=== PATIENT | female | born 1945 | race Asian ===

== ENCOUNTER 2021-08-05 10:29 | Outpatient (CLI) | payer MEDICARE, SELFPAY ==
[2021-08-05 11:19] LABS: Add Urine Microscopic? YES; Appearance Urine Clear (Clear); Bilirubin Urine Negative (Negative); Blood Urine Negative (Negative); Color Urine Straw (Yellow); Glucose Urine UA Negative (Negative); Ketones Urine Negative (Negative); Leukocyte Esterase Ur 2+ LEU/UL (Negative); Mucus Urine Rare /lpf; Nitrate Urine Negative (Negative); Protein Urine Negative (Negative); RBC Urine 0-2 /hpf (0-2); Specific Grav Ur 1.009 (1.001-1.035); Urobilinogen Urine Negative mg/dL (<2.0); WBC Urine >75 /hpf
== END 2021-08-05 10:30 | disposition home or self-care (01) ==
LOC: ANHLAB 10:36
PROVIDERS: PCP Internal Medicine; Visit Provider Internal Medicine
DX: R30.0 Dysuria (principal)
CPT/HCPCS: 81001; 87086; 87147; 87181; 87186

== ENCOUNTER 2021-08-13 14:21 | Outpatient (CLI) | payer MEDICARE, SELFPAY ==
--- NOTE | ~2021-08-13 | MM_ITS ---
EXAMINATION: MM screening hunter BI w tiffany HISTORY: Screening mammogram TECHNIQUE: Craniocaudal and mediolateral oblique 3-D tomosynthesis images were obtained and synthetic 2-D images were generated. CAD analysis was submitted and interpreted. COMPARISON: No prior mammogram is available for comparison at this institution. BREAST PARENCHYMAL COMPOSITION: The breasts are heterogeneously dense, which may obscure small masses . FINDINGS: There is no evidence of suspicious mass, calcification, or architectural distortion to sugg est malignancy in either breast. There has been no suspicious interval change. IMPRESSION: 1. No mammographic evidence of malignancy. 2. Recommend routine screening mammography in one year. BI-RADS Category 1: Negative Reviewed, dictated and finalized at location B. [employer] CONTROL ENGINEER
== END 2021-08-13 14:22 | disposition home or self-care (01) ==
LOC: ANHIMG 14:23
PROVIDERS: PCP Internal Medicine; Visit Provider Internal Medicine
DX: Z12.31 Encounter for screening mammogram for malignant neoplasm of breast (principal)
CPT/HCPCS: 77063; 77067

== ENCOUNTER 2021-12-23 15:35 | Outpatient (CLI) | payer MEDICARE, SELFPAY ==
[2021-12-23 15:54] LABS: Appearance Urine Clear (Clear); Bilirubin Urine Negative (Negative); Blood Urine Trace-lysed (Negative); Color Urine Yellow (Yellow); Glucose Urine UA Negative (Negative); Ketones Urine Negative (Negative); Leukocyte Esterase Ur 3+ LEU/UL (Negative); Nitrate Urine Negative (Negative); Protein Urine Negative (Negative); Specific Grav Ur 1.015 (1.001-1.035); Urobilinogen Urine 0.2 mg/dL (<2.0)
[2021-12-23 15:57] LABS: Bacteria Urine Trace /hpf; WBC Urine >75 /hpf
[2021-12-23 16:14] LABS: Add Urine Microscopic? YES
== END 2021-12-23 15:36 | disposition home or self-care (01) ==
LOC: ANHLAB 15:37
PROVIDERS: PCP Internal Medicine; Visit Provider Internal Medicine
DX: R30.0 Dysuria (principal)
CPT/HCPCS: 81001; 87077; 87086; 87186

== ENCOUNTER 2021-12-30 15:15 | Outpatient (RCR) | payer MEDICARE, SELFPAY ==
--- NOTE | 2021-11-12 11:32 | PTOPEVAL ---
PHYSICAL THERAPY INITIAL EVALUATION. Thank you for referring Janet Gould to [facility].? The patient is scheduled to be seen for therapy? 2x/week for 3 weeks. Please review, sign, date and return this plan of care JEFFREY. I agree with and certify that the following plan of care is medically necessary. Referring Physician Date Attending Provider: Nico Lyons DO *PT Outpatient Evaluation Start: 11/12/21 Evaluation Information Diagnosis R knee pain Onset 3 weeks ago Subjective Information Pt states 3 weeks ago she Query Text:As Reported By Patient/ tripped going down the stairs Family and fell doing down the last step. She states she fell and hit her knee on the concrete. Since then it has been very difficult to walk. When wearing a compression sock she can walk almost normally. Pt reports no pain at rest, only with activity. She completes 1 -2 hours of exercise 4 day per week. Pain Assessment Right Knee(s) Reported Pain Level 0 Pain Description Dull Pain Frequency Acute,Intermittent Other Pain Description 0 at rest Greatest Pain Intensity 8 Pain Aggravating Factors Walking,Weight Bearing/ Standing Lower Extremity Range of Motion General Lower Extremity Range of Motion WFL/Left,WFL/Right Gross Lower Extremity Range of Motion L knee active ROM 0-140 Comments R knee active ROM 0-2-125 Lower Extremity Muscle Strength Testing General Lower Extremity Strength WFL/Left,WFL/Right Gross Lower Extremity Strength B LE grossly 4+/5 R knee flexion 3+/5 R knee extension 4-/5 Muscle Length Testing Left Hamstring Length -10 Right Hamstring Length -35 Posture Thoracic Spine Posture Neutral Thorax Posture Neutral Weight Distribution Decreased Wt.Bear on (R) Palpation Assessment Palpation none Knee Special Tests Anterior Drawer Negative Right Posterior Drawer Negative Right Valgus Stress Test Knee at 0 Degrees Negative Right Varus Stress Test Knee at 0 Degrees Negative Right Patellofemoral Compression/Grind Test Negative Right Balance Assessment Time Up Go (TUG) Timed Up and Go Test (TUG) (Seconds) 19 Comments slow gait speed, increased time to complete turn 5 Time Sit to Stand Time in Seconds 20 5 Time Sit to Stand Comments without the use of UEs G
--- NOTE | 2021-12-04 13:51 | PCPTNOTE ---
Patient did not show up for scheduled appointment this date, she thought she had a different appointment time. She is rescheduled.
--- NOTE | 2021-12-05 16:21 | PTOPEVAL ---
PHYSICAL THERAPY PROGRESS REPORT. Thank you for referring Janet Gould to [facility].? The patient is scheduled to be seen for therapy?2x/week for 4 weeks. Please review, sign, date and return this plan of care JEFFREY. I agree with and certify that the following plan of care is medically necessary. Referring Physician Date Attending Provider: Nico Lyons, *PT Outpatient Evaluation Start: 11/12/21 Evaluation Information Diagnosis R knee pain Onset 3 weeks ago Subjective Information Pt states her knee was getting Query Text:As Reported By Patient/ better for a while but states Family now it feels like it is weak again, but not as bad as before. She has no pain at rest, just with movement. Pt states some days are perfectly normal and other days her knees just does not seem to hold her up. Pain Assessment Self Report Pain Assessment Right Knee(s) Reported Pain Level 0 Greatest Pain Intensity 6 Lower Extremity Range of Motion General Lower Extremity Range of Motion WFL/Left,WFL/Right Gross Lower Extremity Range of Motion L knee active ROM 0-140 Comments R knee active ROM 0-2-132 Lower Extremity Muscle Strength Testing General Lower Extremity Strength WFL/Left,WFL/Right Gross Lower Extremity Strength B LE grossly 4+/5 R knee flexion 3+/5 R knee extension 3+/5 R hip abduction 3+/5 L hip abduction 3/5 B hip extension 2+/3 Balance Assessment Timed Up and Go Test (TUG) (Seconds) 14 Comments Initially: 19s, slow gait speed, increased time to complete turn 12/05/21: 14s, decreased gait speed, no terminal knee extension 5 Time Sit to Stand Time in Seconds 18 5 Time Sit to Stand Comments Initially: 20s without the use Query Text:Normative Data: If Greater of UEs Than 15 Seconds, 74% Increase Risk for 12/05/21: 18s without the use Recurrent Falls of UEs Gait Assessment Gait Pattern Antalgic Gait Gait Pattern Observed Decreased Stride Length - Left ,Decreased Weight Shift - Right,Trunk Lateral Lean - Right Other Gait Observations decreased stride length, lack of terminal knee extension reba 2 Minute Walk Total Distance Walked (feet) 405 2 Minute Walk Test
--- NOTE | 2022-01-01 15:50 | PCPTNOTE ---
Patient did not show up for scheduled appointment this date.
--- NOTE | 2022-02-05 10:50 | PCPTNOTE ---
Attending Provider: Nico Lyons DO Patient:Janet Gould Date of :1945 PHYSICAL THERAPY DISCHARGE SUMMARY. Pt was hospitalized 12/31/21, she was told she needed clearance from her doctor prior to returning to therapy. Have called patient twice and she has not reached out to the office yet. Called again and patient did not answer, left voicemail explaining she will be discharged d/t length of time since she has been to therapy. She will need a new order if she wishes to begin therapy again. Patient has not returned for any further treatments since 12/30/2021. Patient?s initial visit was on 11/12/2021 10:00 and she had a total of 14 visits. The goals have been partially met. Thank you for referring this patient to [facility]. Please review, sign, date and return this discharge summary JEFFREY. I have been updated about the patient's current status and I agree with discharge from the above service at this time. Referring Physician Date
== END 2022-02-05 12:50 | disposition home or self-care (01) ==
LOC: ANHPT 15:15
PROVIDERS: PCP Internal Medicine; Visit Provider Internal Medicine
DX: M25.561 Pain in right knee (principal)
CPT/HCPCS: 97110; 97112; 97116; 97140; 97161; 97530

== ENCOUNTER 2021-12-31 21:29 | Emergency (ER) | payer MEDICARE, SELFPAY ==
--- NOTE | ~2021-12-31 | CT_ITS ---
EXAMINATION: CT abdomen pelvis wo con DATE: 12/31/2021 23:33 INDICATION: Right lower quadrant abdominal pain. TECHNIQUE: Computed tomography (CT) of the abdomen and pelvis was performed without intravenous contr ast. Automated exposure control and iterative reconstruction technique were employed. The dose-length product was 178.63 mGy-cm. COMPARISON: None. FINDINGS: The visualized portions of the lung bases demonstrate mild atelectasis. No pleural effusion . The heart size is normal. No pericardial effusion. The liver, gallbladder, spleen, pancreas, adrena l glands, and left kidney are normal. Right kidney is absent. There is diverticulosis of the colon wi thout evidence of diverticulitis. There are no dilated loops of bowel. The appendix is not visualized . There are no pathologically enlarged lymph nodes. There is no free intraperitoneal fluid. There is thoracolumbar levoscoliosis. There is severe lumbar spondylosis. IMPRESSION: 1. No etiology for the patient's symptoms. Reviewed, dictated and finalized at location A.
[2021-12-31 21:41] VITALS: BP 152/102; PULSE 67; RESP 18; TEMP 36.7; O2SAT 94
[2021-12-31 22:28] VITALS: PULSE 65
--- NOTE | 2021-12-31 23:34 | ED.GENADULT ---
HPI - General Adult General Chief complaint: Weakness Stated complaint: body aches Time Seen by Provider: 12/31/21 23:05 History of Present Illness HPI narrative: 76-year-old female presented to the emergency department for evaluation of 3 days of generalized fatigue and generalized weakness. Patient does describe having chills and fever overnight. Patient denies any chest pain or shortness of breath. Patient states she did have some tingling in her hands but denies any other significant plaints. Related Data Allergies Allergy/AdvReac Type Severity Reaction Status Date / Time No Known Allergies Allergy Verified 12/04/21 13:56 Review of Systems Review of Systems: CONSTITUTIONAL: See HPI EYES: Denies visual changes, redness, or discharge. ENT: Denies rhinorrhea, congestion, sore throat, or otalgia. CARDIOVASCULAR: Denies chest pain, palpitations, or edema. RESPIRATORY: Denies cough or dyspnea. GASTROINTESTINAL: Denies abdominal pain, nausea, vomiting, or diarrhea. GENITOURINARY: Denies dysuria or hematuria. SKIN: Denies rash or itching. MUSCULOSKELETAL: Denies back pain, joint pain, or myalgia. NEUROLOGIC: Denies headache, numbness, or weakness. [facility] Family History Family History Mother Cerebrovascular accident Social History Social History Smoking status: Never smoker Second hand tobacco smoke exposure: No Alcohol intake: never Substance use: unknown Substance use type: does not use Spiritual care concerns: No Exam Narrative: APPEARANCE: Well appearing, no pain, no distress, well-nourished. HEAD: normocephalic, atraumatic. EYES: PERRLA/EOMI, conjunctivae clear. NOSE: Normal no drainage THROAT: Pharynx clear, no exudate. NECK: Supple. No adenopathy, no masses. RESPIRATORY: Airway patent, respirations nonlabored. Clear to auscultation bilaterally, no rales, rhonchi, wheezing. CARDIOVASCULAR: Regular rate and rhythm without murmurs rubs or gallops. ABDOMINAL: Soft, nontender, nondistended, normal bowel sounds MUSCULOSKELETAL: Moves all extremities. Strength/ROM intact, No edema, No calf tenderness. NEURO: Alert. Cranial nerves II through XII intact. Good gait. Good coordination SKIN: Warm, dry. Normal Color Course Course Emergency Course: Patient did feel improved with treatment. Patient is afebrile with no leukocytosis. Patient's CMP was also normal limits. UA was negative for urinary tract infection. COVID test was negative. Patient's CT scan showed moderate amount of stool but no explanation for the patient's symptoms. Patient was updated on the results of her work-up and recommended have close follow-up with her primary care physician. Patient states she did feel improved and was comfortable with the plan for discharge to home and close follow-up. Patient was also educated reasons to return to the emergency department. Vital Signs Vital signs: Vital Signs Temperature 98.1 F 12/31/21 21:41 Pulse Rate 67 12/31/21 21:41 Respiratory Rate 18 12/31/21 21:41 Blood Pressure 152/102 H 12/31/21 21:41 Pulse Oximetry 94 12/31/21 21:41 Oxygen Delivery Room Air 12/31/21 21:41 Temperature 98.1 F 12/31/21 21:41 Pulse Rate 76 01/01/22 03:18 Respiratory Rate 18 01/01/22 03:18 Blood Pressure 153/103 H 01/01/22 03:18 Pulse Oximetry 99 01/01/22 03:18 Oxygen Delivery Room Air 12/31/21 21:41 Medical Decision Making Vital Signs Vital Signs: Vital Signs Temperature 98.1 F 12/31/21 21:41 Pulse Rate 67 12/31/21 21:41 Respiratory Rate 18 12/31/21 21:41 Blood Pressure 152/102 H 12/31/21 21:41 Pulse Oximetry 94 12/31/21 21:41 Oxygen Delivery Room Air 12/31/21 21:41 Temperature 98.1 F 12/31/21 21:41 Pulse Rate 76 01/01/22 03:18 Respiratory Rate 18 01/01/22 03:18 Blood Pressure 153/103 H 01/01/22 03:18 Pulse Oximetry 9
[2022-01-01] MEDS: SODIUM CHLORIDE 0.9% IV 1,000 ML 999 ML IV CONT (00:16)
[2022-01-01 00:25] LABS: Basophils Percent Auto 0.7 % (0.2-1.2); Hematocrit 43.1 % (37.0-47.0); Hemoglobin 14.1 g/dL (12.0-15.0); Immature Granulocyte Absolute 0.01 K/mm3 (0.00-0.031); Immature Granulocyte Percent A 0.4 % (0-0.5); Lymphocytes Absolute Auto 0.46 K/mm3 (0.9-3.2); Lymphocytes Percent Auto 16.3 % (18.3-44.2); Mean Corpuscular HGB Conc 32.7 g/dl (32-36); Mean Corpuscular Hemoglobin 29.4 pg (26-34); Mean Corpuscular Volume 89.8 fl (80-100); Mean Platelet Volume 9.4 fl (7.4-10.4); Monocytes Absolute Auto 0.2 K/mm3 (0.1-0.6); Monocytes Percent Auto 7.4 % (2.6-8.5); Neutrophils Absolute Auto 2.1 K/mm3 (1.3-6.7); Neutrophils Percent Auto 75.2 % (45.5-73.1); Platelet Count Result 202 k/mm3 (150-375); Red Cell Distribution Width 13.3 % (11.5-14.5); White Blood Count 2.8 K/mm3 (4.5-10.0)
[2022-01-01 00:37] LABS: SARS-CoV-2 RNA PCR Negative
[2022-01-01 00:42] LABS: Alanine Aminotransferase 13 U/L (6-35); Albumin Level 4.7 g/dL (3.5-5.1); Alkaline Phosphatase 70 U/L (38-126); Anion Gap 11 mmol/L (8-16); Aspartate Amino Transferase 25 U/L (14-36); Bilirubin,Total 0.6 mg/dL (0.2-1.3); Blood Urea Nitrogen 20 mg/dL (7-17); Calcium 9.2 mg/dL (8.4-10.2); Carbon Dioxide 22 mmol/L (22-30); Chloride 100 mmol/L (98-107); Estimated CRCL calculation 39 ml/min; Estimated Glomerular Filt Rate > 60; Glucose 144 mg/dL (65-110); Lipase 61 U/L (23-300); Potassium 4.9 mmol/L (3.4-5.0); Sodium 133 mmol/L (137-145)
[2022-01-01 00:55] LABS: Lactic Acid Reflex 1.4 mmol/L (0.7-2.0)
[2022-01-01 01:39] LABS: Appearance Urine Clear (Clear); Bilirubin Urine Negative (Negative); Color Urine Yellow (Yellow); Glucose Urine UA Negative (Negative); Ketones Urine 2+ mg/dL (Negative); Leukocyte Esterase Ur Negative LEU/UL (Negative); Nitrate Urine Negative (Negative); Protein Urine Trace mg/dL (Negative); Urobilinogen Urine 0.2 mg/dL (<2.0); pH Urine 6.5 (5.0-9.0)
[2022-01-01 01:40] LABS: Mucus Urine Rare /lpf; RBC Urine 0-2 /hpf (0-2); Squamous Epithelial Cell Urine Rare /hpf (Few); WBC Urine 0-3 /hpf
[2022-01-01 01:55] LABS: Add Urine Microscopic? YES; Blood Urine Trace (Negative)
[2022-01-01 03:18] VITALS: BP 153/103; PULSE 76; RESP 18; O2SAT 99
== END 2022-01-01 03:20 | disposition home or self-care (01) ==
PROVIDERS: Emergency Provider Emergency Medicine; PCP Internal Medicine
DX: R53.1 Weakness (principal); Z20.822 Contact with and (suspected) exposure to COVID-19
CPT/HCPCS: 36415; 74176; 80053; 81001; 83605; 83690; 85025; 96361; 96365; 99284; C9803; J0131; J7030; U0003; U0005

== ENCOUNTER 2022-02-18 15:30 | Outpatient (CLI) | payer MEDICARE, SELFPAY ==
[2022-02-18 16:34] LABS: Appearance Urine Slightly Cloudy (Clear); Bilirubin Urine Negative (Negative); Blood Urine Negative (Negative); Color Urine Yellow (Yellow); Glucose Urine UA Negative (Negative); Ketones Urine Negative (Negative); Leukocyte Esterase Ur 2+ LEU/UL (Negative); Nitrate Urine Positive (Negative); Protein Urine Negative (Negative); Urobilinogen Urine 0.2 mg/dL (<2.0)
[2022-02-18 16:47] LABS: Bacteria Urine 1+ /hpf; Mucus Urine Rare /lpf; Squamous Epithelial Cell Urine Rare /hpf (Few); WBC Urine >75 /hpf
[2022-02-18 16:48] LABS: Add Urine Microscopic? YES
== END 2022-02-18 15:31 | disposition home or self-care (01) ==
LOC: ANHLAB 15:31
PROVIDERS: PCP Internal Medicine; Visit Provider Internal Medicine
DX: R30.0 Dysuria (principal)
CPT/HCPCS: 81001; 87077; 87086; 87186

== ENCOUNTER 2022-05-11 11:12 | Outpatient (CLI) | payer MEDICARE, SELFPAY ==
--- NOTE | ~2022-05-11 | XR_ITS ---
EXAMINATION: XR chest 2V Exam Date/Time: 05/11/2022 11:40 CDT HISTORY: R05.9 - Cough, unspecified Comparison: None available. RESULT: Lines, tubes, and devices: None. Lungs and pleura: Biapical pleural scarring. Diaphragm flattening. Cardiomediastinal silhouette: Mild thoracic aortic calcification and ascending aortic ectasia. Other: No acute osseous or upper abdominal finding. Thoracolumbar scoliosis. IMPRESSION: No acute cardiopulmonary process. Emphysematous change. Reviewed, dictated and finalized at location K.
== END 2022-05-11 11:13 | disposition home or self-care (01) ==
PROVIDERS: PCP Internal Medicine; Visit Provider Internal Medicine
DX: R05.9 Cough, unspecified (principal)
CPT/HCPCS: 71046

== ENCOUNTER 2022-07-14 10:40 | Emergency (ER) | payer MEDICARE, SELFPAY ==
--- NOTE | ~2022-07-14 | CT_ITS ---
EXAMINATION: CT cervical spine wo con DATE: 07/14/2022 12:24 INDICATION: Fall down stairs. Neck pain. TECHNIQUE: Computed tomography (CT) of the cervical spine was performed without intravenous contrast. Automated exposure control and iterative reconstruction technique were employed. Exam dose: 114.12 mGy-cm total exam DLP. COMPARISON: None FINDINGS: C1 and C2 are normally aligned and the odontoid process is intact. 1.5 mm anterolisthesis at C2-3. There is severe degenerative disc disease and associated mild retrolisthesis at C3-4. Prominent bilateral uncovertebral joint spurring at C3-4. There is mild degenerative disease at C4-5. There is moderately severe degenerative disc disease and minimal retrolisthesis at C5-6 with bilatera l uncovertebral joint spurring at this level. Approximately 2 mm anterolisthesis at C7-T1. There is degenerative change at the apophyseal joints throughout the cervical spine. No fracture or dislocation or locked facet or prevertebral soft tissue swelling is noted. IMPRESSION: Prominent cervical spondylosis; no fracture, dislocation, locked facet or prevertebral s oft tissue swelling Reviewed, dictated and finalized at Location A. Reviewed, dictated and finalized at location L. K FUNERAL DETAIL IMPRESSION: Prominent cervical spondylosis; no fracture, dislocation, locked f acet or prevertebral soft tissue swelling
--- NOTE | ~2022-07-14 | CT_ITS ---
EXAMINATION: CT facial bones wo con DATE: 07/14/2022 15:52 INDICATION: Left facial injury TECHNIQUE: Computed tomography (CT) of the facial bones and maxillofacial region was performed withou t intravenous contrast. Automated exposure control and iterative reconstruction technique were employ ed. Exam dose: 298.92 mGy-cm total exam DLP. COMPARISON: None. FINDINGS: The frontozygomatic sutures, orbital rims and johnson, nasal bones, anterior maxillary spine, maxillary and petrous temporal bones as well as the zygomatic arches are intact. No facial fracture is detected. No mandibular fracture or dislocation. Normal alignment at the temporomandibular joints. There is prominent soft tissue opacification of the right frontal sinus, patchy prominent bilateral e thmoid air cell opacification and mild mucoperiosteal thickening of the maxillary sinuses. There is p rominent soft tissue thickening of the right sphenoid sinus. Included portions of the mastoid air cells are unremarkable. IMPRESSION: No facial fracture Paranasal sinus disease Reviewed, dictated and finalized at Location A. Reviewed, dictated and finalized at location L. ERCIAL SALES CONSULTANT
--- NOTE | ~2022-07-14 | CT_ITS ---
EXAMINATION: CT brain wo con DATE: 07/14/2022 12:24 INDICATION: Fall down stairs last night. Head, neck injury. Neck pain. TECHNIQUE: Computed tomography (CT) of the head was performed without intravenous contrast. The mA wa s adjusted according to patient size. Iterative reconstruction technique was employed. Exam dose: 60 5.33 mGy-cm total exam DLP. COMPARISON: None FINDINGS: Left lateral frontal mild cephalohematoma is noted. No intracranial coup or contrecoup inju ry is detected. Chronic lacunar infarct of the right cerebellar hemisphere. Bilateral carotid siphon internal carotid artery calcifications. There is nonspecific diminished atte nuation of the cerebral white matter, likely due to chronic small vessel ischemic changes. No intracranial mass lesion or hemorrhage or recent cerebrovascular accident is evident. No midline s hift or mass effect. No subdural or epidural hematoma. There is prominent partial opacification of the right frontal sinus and prominent patchy bilateral et hmoid air cell opacification. There is prominent soft tissue thickening of the right sphenoid sinus. No fracture or bone destruction of the cranial vault. 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 Reviewed, dictated and finalized at location L. 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
--- NOTE | ~2022-07-14 | XR_ITS ---
Left wrist Technique: PA, oblique, lateral, and ulnar deviation views were obtained. Clinical History: Pain Findings: Traumatic fracture of the distal radius present, predominantly transverse in orientation, w ith additional nodule extension to the articular surface. Dr. Rivas lungs are mildly displaced overa ll. There is also a transverse, traumatic, minimally displaced fracture of the ulnar styloid process. . Joint spaces are preserved. Soft tissues are unremarkable. Impression: Traumatic, comminuted, intra-articular fracture distal radius with mild displacement. Transverse, mildly displaced fracture of the ulnar side process. Reviewed, dictated and finalized at location . MANAGER Impression: Traumatic, comminuted, intra-articular fracture distal radius with mild displac ement. Transverse, mildly displaced fracture of the ulnar side process.
--- NOTE | ~2022-07-14 | XR_ITS ---
XR knee RT min 4V DATE: 07/14/2022 15:48 INDICATION: Pain following a fall TECHNIQUE: 4 views COMPARISON: None FINDINGS: Small suprapatellar knee joint effusion is suggested. Superior pole patellar enthesopathy at quadriceps tendon insertion. Chondrocalcinosis is noted at the medial and lateral menisci. Minimal tricompartment osteoarthritis No fracture or dislocation, periosteal reaction or bone destruction is detected. Femoral and trifurcation artery calcification. IMPRESSION: Small knee joint effusion; no fracture or dislocation is evident Chondrocalcinosis Minimal osteoarthritis Patellar enthesopathy Reviewed, dictated and finalized at location L. LE STEAMER
--- NOTE | 2022-07-14 11:03 | PC.NURSE ---
ice pack to wrist in place upon arrival; LUE placed on long arm board for support and held in place with ruth; pt. instructed on how to support; nvs intact after placement.
[2022-07-14 11:54] VITALS: BP 145/116; PULSE 87; RESP 16; TEMP 37.2; O2SAT 99
[2022-07-14 12:44] VITALS: BP 152/93; PULSE 85; RESP 16; TEMP 37.2; O2SAT 99
--- NOTE | 2022-07-14 15:37 | PC.NURSE ---
unable to prepare OCL materials because registration at bedside and will not vacate room, radiology also awaiting to get into room and CT waiting for pt.
--- NOTE | 2022-07-14 16:03 | ED.GENADULT ---
HPI - General Adult General Chief complaint: Extremity Injury, Upper Stated complaint: fall, hit head Time Seen by Provider: 07/14/22 15:14 History of Present Illness HPI narrative: 76-year-old female presented to the emergency department for evaluation after having a mechanical fall down 3 stairs. Patient states that she was carrying multiple items while walking on the stairs and had a fall. During this fall she did fall and strike her face on the basement floor and has a subsequent abrasion and contusion to the left face. Patient also injured her left wrist. Patient was also complaining of right knee pain. Patient denies any loss of consciousness. Family suspects that the fall happened sometime yesterday evening. Related Data Home Medications Medication Instructions Recorded Confirmed No Home Medications 05/29/22 05/29/22 Allergies Allergy/AdvReac Type Severity Reaction Status Date / Time No Known Allergies Allergy Verified 05/29/22 10:50 Review of Systems Review of Systems: CONSTITUTIONAL: Denies fever, chills, or sweats. EYES: Denies visual changes, redness, or discharge. ENT: Denies rhinorrhea, congestion, sore throat, or otalgia. CARDIOVASCULAR: Denies chest pain, palpitations, or edema. RESPIRATORY: Denies cough or dyspnea. GASTROINTESTINAL: Denies abdominal pain, nausea, vomiting, or diarrhea. GENITOURINARY: Denies dysuria or hematuria. SKIN: See HPI MUSCULOSKELETAL: See HPI NEUROLOGIC: Denies headache, numbness, or weakness. PSYCHIATRIC: Denies anxiety or depression. [facility] Surgical History Surgical History H/O kidney removal History of cholecystectomy Family History Family History Mother Cerebrovascular accident Social History Social History (Updated 05/11/22 @ 10:41 by Mo Hubbard MA) Smoking status: Never smoker Second hand tobacco smoke exposure: No Alcohol intake: never Substance use: unknown Substance use type: does not use Lack of Transportation: No Lack of Food: Never True Current Housing: I Have Housing Concerned About Future Housing: No Difficulty Paying Gas/Electric Bills: No Difficulty Paying for Meds: No Currently Unemployed: No Education: Bachelor's Degree Difficulty w/ Childcare or Family Care: No Spiritual care concerns: No Exam Narrative: APPEARANCE: Well appearing, no pain, no distress, well-nourished. HEAD: normocephalic, atraumatic. EYES: PERRLA/EOMI, conjunctivae clear. NOSE: Normal no drainage EARS:TMS clear with good light reflex. THROAT: Pharynx clear, no exudate. NECK: Supple. No adenopathy, no masses. RESPIRATORY: Airway patent, respirations nonlabored. Clear to auscultation bilaterally, no rales, rhonchi, wheezing. CARDIOVASCULAR: Regular rate and rhythm without murmurs rubs or gallops. ABDOMINAL: Soft, nontender, nondistended, normal bowel sounds MUSCULOSKELETAL: Moves all extremities. Tenderness and deformity of left wrist. Tenderness to right knee NEURO: Alert. Cranial nerves II through XII intact. Good gait. Good coordination SKIN: Warm, dry. Normal Color PSYCHIATRIC: Normal affect/mood. Course Course Emergency Course: Ring was removed from left ring finger. Left wrist was splinted and during the splinting process to the wrist was manipulated to obtain better anatomic positioning. Patient was referred to orthopedics for follow-up. Patient's head neck and facial CT were negative. Patient really reviewed on the results of the imaging. They are encouraged with close follow-up. All questions concerns were addressed. Vital Signs Vital signs: Vital Signs Temperature 98.9 F 07/14/22 11:54 Pulse Rate 87 07/14/22 11:54 Respiratory Rate 16 07/14/22 11:54 Blood Pressure 145/116 H 07/14/22 11:54 Pulse Oximetry 99 07/14/22 11:54 Oxygen Delivery Room Air 07/14/22 11:54 Temperature 98.9 F 01
[2022-07-14] MEDS: MORPHINE SULFATE (*CRX) 4 MG/ML INJ IV PUSH (16:10)
[2022-07-14 17:45] VITALS: BP 145/90; PULSE 80; RESP 18; O2SAT 97
--- NOTE | 2022-07-14 17:54 | PC.NURSE ---
sling applied prior to discharge with instructions to wear when ambulating; otherwise have arm elevated and as straight as possible; also given education wound care of facial abrasion. Pt. and pt. daughter verbalized understanding.
--- NOTE | 2022-07-21 12:37 | PC.NURSE ---
LATE ENTRY This note is being entered to document information to the patient's record. The following information was omitted on [07/14/22], by [Michelle Ordonez RN]. Left, short arm volar splint applied with tech assistance.
== END 2022-07-14 17:50 | disposition home or self-care (01) ==
PROVIDERS: Emergency Provider Emergency Medicine; PCP Internal Medicine
DX: S52.572A Other intraarticular fracture of lower end of left radius, initial encounter for closed fracture (principal); S52.612A Displaced fracture of left ulna styloid process, initial encounter for closed fracture; S00.83XA Contusion of other part of head, initial encounter; S00.81XA Abrasion of other part of head, initial encounter; S89.91XA Unspecified injury of right lower leg, initial encounter; Z90.5 Acquired absence of kidney; M11.261 Other chondrocalcinosis, right knee; M17.11 Unilateral primary osteoarthritis, right knee; M76.51 Patellar tendinitis, right knee; J32.9 Chronic sinusitis, unspecified; I67.2 Cerebral atherosclerosis; M47.812 Spondylosis without myelopathy or radiculopathy, cervical region; W10.9XXA Fall (on) (from) unspecified stairs and steps, initial encounter
CPT/HCPCS: 29125; 70450; 70486; 72125; 73100; 73564; 96374; 99284; A4565; J2270